=== PATIENT | male | born 1955 | race Caucasian/White ===

== ENCOUNTER → 2019-02-07 | Emergency (ER) | payer BC ==
--- NOTE | 2019-02-07 18:39 | CT ---
CT OF THE BRAIN WITHOUT CONTRAST: 02/07/19 COMPARISON: None. HISTORY: Fell and hit head with headache. TECHNIQUE: Multiple contiguous axial images were obtained in a CT of the brain without contrast. Sagittal and co ricky reformats were performed. FINDINGS: The brain is normal in morphology and attenuation without focal lesions or confluent areas of infarct ion. There is no evidence of hydrocephalus, intracranial hemorrhage or extra-axial fluid collection. The calvarium and overlying soft tissues are unremarkable. The visualized paranasal sinuses and masto id air cells are well aerated. IMPRESSION: No evidence of acute intracranial abnormality. POS: C
--- NOTE | 2019-02-07 18:41 | CT ---
CT OF THE CERVICAL SPINE WITHOUT CONTRAST: 02/07/19 COMPARISON: None. HISTORY: Fell and hit head with headache and neck pain. TECHNIQUE: Multiple contiguous axial images were obtained in a CT of the cervical spine without contrast. Sagitt al and coronal reformats were performed. FINDINGS: Mild degenerative changes are seen at C5-6. The vertebral bodies demonstrate normal height and alignm ent without fracture or subluxations. No prevertebral soft tissue swelling is seen. The posterior facets are well aligned. Normal alignment of the skull base with the cervical spine is seen. IMPRESSION: No evidence of acute osseous abnormality of the cervical spine. POS: C
--- NOTE | 2019-02-07 18:45 | RAD ---
THREE VIEWS LUMBOSACRAL SPINE: 02/07/19 HISTORY: Fall with back pain. FINDINGS: Three views of the lumbosacral spine shows normal height and alignment of the vertebral bodies and in tervertebral discs without fracture or subluxation. Minimal degenerative changes are seen in the low er lumbosacral spine. IMPRESSION: Mild degenerative changes without acute osseous abnormality. POS: C
== END ==
LOC: BURERS 17:31
DX: S06.0X1A Concussion with loss of consciousness of 30 minutes or less, initial encounter (principal); I10 Essential (primary) hypertension; Z79.899 Other long term (current) drug therapy; W18.30XA Fall on same level, unspecified, initial encounter
CPT/HCPCS: 70450; 72100; 72125